=== PATIENT | male | born 1990 | race Caucasian/White ===

== ENCOUNTER 2019-03-01 19:46 | Emergency (ER) | payer OTHER ==
[2019-03-01] MEDS ORDERED: IBUPROFEN 800 MG TABLET PO ONE (20:06)
[2019-03-01] MEDS ORDERED: NORMAL SALINE 1000 ML 1,000 ML IV ONE (20:08)
--- NOTE | 2019-03-01 20:08 | ER Document Report ---
ED Medical Screen (RME) - General Chief Complaint: Fever Stated Complaint: FEVER, BODY PAIN Time Seen by Provider: 03/01/19 20:00 Primary Care Provider: TEDDY MARTINEZ PA [Primary Care Provider] - Follow up as needed Information source: Patient Notes: Patient presents complaining of fever, body aches, sore throat, and cough for the past 3 days. Patient reports temperature over 103 at home. Patient denies any nausea vomiting or diarrhea. I have greeted and performed a rapid initial assessment of this patient. A comprehensive ED assessment and evaluation of the patient, analysis of test results and completion of the medical decision making process will be conducted by additional ED providers. TRAVEL OUTSIDE OF THE [place] IN LAST 30 DAYS: No - Related Data Allergies/Adverse Reactions: No Known Allergies Allergy (Unverified 03/01/19 19:52) Physical Exam - Vital signs Vitals: Temp Pulse Resp BP Pulse Ox 99.4 F 114 H 14 124/80 96 03/01/19 19:57 03/01/19 19:57 03/01/19 19:57 03/01/19 19:57 03/01/19 19:57 - HEENT Pharynx: Erythema. No: Exudate Course - Vital Signs Vital signs: Temp Pulse Resp BP Pulse Ox 99.4 F 114 H 14 124/80 96 03/01/19 19:57 03/01/19 19:57 03/01/19 19:57 03/01/19 19:57 03/01/19 19:57 Doctor's Discharge - Discharge Referrals: TEDDY MARTINEZ PA [Primary Care Provider] - Follow up as needed
[2019-03-01 20:39] LABS: ABSOLUTE BASOPHILS # (AUTO) 0.1 10^3/uL (0.0-0.2); ABSOLUTE EOSINOPHILS # (AUTO) 0.1 10^3/uL (0.0-0.6); ABSOLUTE MONOCYTES (AUTO) 0.8 10^3/uL (0.1-1.4); ABSOLUTE NEUT (AUTO) 8.9 10^3/uL (1.7-8.2); BASOPHILS % (AUTO) 0.5 % (0-2); EOSINOPHILS % (AUTO) 0.5 % (0-6); HEMATOCRIT 39.2 % (37.9-51.0); HEMOGLOBIN 13.8 g/dL (13.5-17.0); LYMPHOCYTES % (AUTO) 9.6 % (13-45); MEAN CORPUSCULAR HEMOGLOBIN 29.5 pg (27.0-33.4); MEAN CORPUSCULAR HGB CONC 35.2 g/dL (32.0-36.0); MEAN CORPUSCULAR VOLUME 84 fl (80-97); MONOCYTES % (AUTO) 7.8 % (3-13); PLATELET COUNT 186 10^3/uL (150-450); RED BLOOD COUNT 4.67 10^6/uL (4.35-5.55); RED CELL DISTRIBUTION WIDTH 12.9 % (11.5-14.0); SEGMENTED NEUTROPHILS % (AUTO) 81.6 % (42-78); TOTAL CELLS COUNTED % (AUTO) 100 %; WHITE BLOOD COUNT 10.9 10^3/uL (4.0-10.5)
--- NOTE | 2019-03-01 20:47 | RADIOLOGY REPORT (SQ) ---
EXAM DESCRIPTION: XR CHEST 2 VIEWS COMPLETED DATE/TME: 03/01/2019 20:05 CLINICAL HISTORY: 28 years, Male, fever, cough COMPARISON: None. NUMBER OF VIEWS: Two TECHNIQUE: Frontal and lateral radiographs of the chest were obtained. LIMITATIONS: None. FINDINGS: Cardiac and mediastinal contours are normal in appearance. Lungs are clear. No pleural effusion or pneumothorax. IMPRESSION: No acute disease. copyright 2010 [employer]- All Rights Reserved
[2019-03-01 21:02] LABS: ANION GAP 12 (5-19); BLOOD UREA NITROGEN 13 mg/dL (7-20); CALCIUM 9.4 mg/dL (8.4-10.2); CARBON DIOXIDE 26 mmol/L (22-30); CHLORIDE 99 mmol/L (98-107); GLUCOSE 110 mg/dL (75-110); POTASSIUM 3.9 mmol/L (3.6-5.0); SODIUM 137.2 mmol/L (137-145)
[2019-03-01] MEDS ORDERED: PENICILLIN V POTASSIUM 500 MG TABLET PO ONE (22:14)
--- NOTE | 2019-03-01 22:24 | ER Document Report ---
ED General - General Chief Complaint: Fever Stated Complaint: FEVER, BODY PAIN Time Seen by Provider: 03/01/19 20:00 Primary Care Provider: TEDDY MARTINEZ PA [Primary Care Provider] - Follow up as needed TRAVEL OUTSIDE OF THE [place] IN LAST 30 DAYS: No - HPI Notes: Patient is a 28-year-old male who presents to the emergency for evaluation of fever, sore throat, body aches, minimal cough. Symptoms been present since Wednesday. Had a fever over 103 at home. He denies any nausea or vomiting. No abdominal pain. His neck is sore but denies any krupa neck stiffness. Still urinating without difficulty. He just complains of aching body pains all over. - Related Data Allergies/Adverse Reactions: No Known Allergies Allergy (Unverified 03/01/19 19:52) Past Medical History - General Information source: Patient - Social History Smoking Status: Current Some Day Smoker Chew tobacco use (# tins/day): No Drug Abuse: None Family History: Malignancy - Bladder cancer in father Patient has suicidal ideation: No Patient has homicidal ideation: No - Medical History Medical History: Negative Renal/ Medical History: Denies: Hx Peritoneal Dialysis Review of Systems - Review of Systems Constitutional: See HPI EENT: See HPI Cardiovascular: No symptoms reported Respiratory: See HPI Gastrointestinal: No symptoms reported Genitourinary: No symptoms reported Musculoskeletal: See HPI Skin: No symptoms reported Neurological/Psychological: No symptoms reported Physical Exam - Vital signs Vitals: Temp Pulse Resp BP Pulse Ox 99.4 F 114 H 14 124/80 96 03/01/19 19:57 03/01/19 19:57 03/01/19 19:57 03/01/19 19:57 03/01/19 19:57 - Notes Notes: Vital signs reviewed, please refer to chart. Head is normocephalic, atraumatic. Pupils equal round, reactive to light. Pharynx reveals erythema with tonsillar exudate, left greater than right. Neck is supple without meningismus. Heart is regular rate and rhythm. Lungs are clear to auscultation bilaterally. Abdomen is soft, nontender, normoactive bowel sounds throughout. Extremities without cyanosis, clubbing. Posterior calves are nontender. Peripheral pulses are equal. Skin is warm and dry. Patient is awake, alert, neurological exam is nonfocal. Course - Re-evaluation Re-evalutation: 03/01/19 22:22 Patient presents to the emergency department for evaluation. He had initial laboratory investigations and orders as placed through triage. His strep screen was positive. His clinical presentation is consistent with that. He is feeling improved after IV hydration as well as ibuprofen. He is given his first dose of penicillin here. We will send him home with a 10-day course. The importance of completing this course was stressed to the patient. He is to follow-up with primary care next week, return to the emergency department with worsening or new concerning symptoms of any sort. - Vital Signs Vital signs: Temp Pulse Resp BP Pulse Ox 99.1 F 103 H 18 133/72 H 97 03/01/19 21:20 03/01/19 21:20 03/01/19 21:20 03/01/19 21:20 03/01/19 21:20 - Laboratory Result Diagrams: 03/01/19 20:15 03/01/19 20:15 Laboratory results interpreted by me: 03/01/19 20:15 WBC 10.9 H Seg Neutrophils % 81.6 H Lymphocytes % 9.6 L Absolute Neutrophils 8.9 H Discharge - Discharge Clinical Impression: Streptococcal pharyngitis Condition: Stable Disposition: HOME, SELF-CARE Instructions: Strep Throat ([facility]) Additional Instructions: Rest, stay well-hydrated. Take all the antibiotics as directed until they are gone. Follow-up with your primary care physician next week. Return to the emergency department with worsening or new concerning symptoms. Referrals: TEDDY MARTINEZ PA [Primary Care Provider] - Follow up as needed
[2019-03-01 23:24] VITALS: BP 123/72
== END 2019-03-01 23:00 | disposition home or self-care (01) ==
LOC: ER 19:46
DX: J02.0 Streptococcal pharyngitis (principal); R50.9 Fever, unspecified; R05 Cough; F17.200 Nicotine dependence, unspecified, uncomplicated
CPT/HCPCS: 99283; 96360; 36415; 87040; 87880; 85025; 80048; 71046; J7030